=== PATIENT | female | born 1965 | race Caucasian/White ===

== ENCOUNTER → 2016-11-07 | Outpatient (CLI) | payer MEDICARE, OTHER ==
[2016-11-07 12:02] LABS: HEMOGLOBIN 14.3 gm/dl (12.3-15.3); RED BLOOD COUNT 3.81 M/UL (4.00-5.10); WHITE BLOOD COUNT 5.8 K/UL (4.5-11.0)
[2016-11-07 12:40] LABS: BUN/CREATININE RATIO 6 (0-10)
== END ==
LOC: LAB 10:43
PROVIDERS: Nurse Practitioner Family
DX: E78.5 Hyperlipidemia, unspecified (principal); E53.9 Vitamin B deficiency, unspecified; E55.9 Vitamin D deficiency, unspecified; I10 Essential (primary) hypertension
CPT/HCPCS: 36415; 80053; 80061; 82043; 82607; 82652; 85025

== ENCOUNTER → 2016-11-19 | Outpatient (CLI) | payer MEDICARE | LOC: RAD 11:31 | DX: F17.200 Nicotine dependence, unspecified, uncomplicated (principal) | CPT/HCPCS: 71020 ==

== ENCOUNTER → 2017-01-06 | Outpatient (CLI) | payer MEDICARE | LOC: MAMO 11:03 | DX: Z12.31 Encounter for screening mammogram for malignant neoplasm of breast (principal); Z80.3 Family history of malignant neoplasm of breast | CPT/HCPCS: G0202 ==

== ENCOUNTER 2021-05-06 | Inpatient (IN) | payer MEDICARE, MEDICAID ==
[~2021-05-06] VITALS: Ht 170.2 cm; Wt 56.7 kg
[~2021-05-06] MED LIST: ADVAIR 100-501 EACH INH; ADVIL200 MG PO; ATIVAN0.5 MG PO; BENADRYL 50MG C50 MG PO; BUSPAR 5MG TABLE5 MG PO; CALMOSEPTINE OI71 GM TOP; COLACE 100MG C100 MG PO; CORDARONE 200M200 MG PO; COREG6.25 MG PO; CYMBALTA60 MG PO; DOXYCYCLINE HY100 M2 PO; ECOTRIN81 MG PO; ELAVIL 25 MG TA25 MG PO; ELIQUIS2.5 MG PO; ENTRESTO 49 MG1 EACH PO; FISH OIL 1,0001 EACH PO; FOLIC ACID 1 MG1 MG PO; HYDROCODON-ACE1 EAC2 PO; K-DUR TAB 20 M20 MEQ PO; KEPPRA500 MG PO; LASIX TAB 20 MG20 MG PO; LEXAPRO5 MG PO; LIDOCAINE PAIN1 EACH TP; LOPID TAB 600600 MG PO; LOVENOX30 MG/0.3 SQ; MAGOX 400400 MG PO; MEGACE 400400 MG/10 PO; MIRALAX 119 GR119 GM PO; MYCOSTATIN POWD15 GM TOP; MYCOSTATIN100000 UTS PO; NEURONTIN300 MG PO; NICOTINE PATCH1 EAC5 TD; NORCO 10-325 T1 EACH PO; NORCO 5-325 TA1 EACH PO; OXYCODONE HCL5 MG PO; PERCOCET 5-3251 EACH PO; PROTONIX40 MG PO; SILVADENE CREAM20 GM TOP; THERAGRAN M TAB1 EA PO; TYLENOL 325MG325 MG PO; ULTRAM50 MG PO; VANCOMYCIN HCL250 MG PO; VENTOLIN HFA 66.7 GM INH; VISTARIL25 MG PO; VITAMIN B-1100 MG PO; VITAMIN D250000 UNIT PO; VITAMIN D350000 UNIT PO; ZANTAC 150 MG150 MG PO; ZOFRAN4 MG PO
[2021-05-06 00:59] LABS: HEMOGLOBIN 12.8 gm/dl (12.3-15.3); RED BLOOD COUNT 4.18 M/UL (4.00-5.10); WHITE BLOOD COUNT 8.7 K/UL (4.5-11.0)
[2021-05-06 01:23] LABS: BUN/CREATININE RATIO 20 (0-10)
[2021-05-06] MEDS ORDERED: IBUPROFEN800 MG PO (12:45)
[2021-05-06] MEDS ORDERED: TYLENOL EXTRA500 MG PO (12:46)
[2021-05-07 07:04] LABS: HEMOGLOBIN 13.3 gm/dl (12.3-15.3); RED BLOOD COUNT 4.37 M/UL (4.00-5.10)
[2021-05-07 07:08] LABS: WHITE BLOOD COUNT 11.9 K/UL (4.5-11.0)
[2021-05-08 08:07] LABS: HEMOGLOBIN 12.2 gm/dl (12.3-15.3); RED BLOOD COUNT 4.21 M/UL (4.00-5.10)
[2021-05-08 08:13] LABS: WHITE BLOOD COUNT 8.8 K/UL (4.5-11.0)
[2021-05-09 06:47] LABS: HEMOGLOBIN 13.2 gm/dl (12.3-15.3); RED BLOOD COUNT 4.32 M/UL (4.00-5.10); WHITE BLOOD COUNT 8.6 K/UL (4.5-11.0)
[2021-05-09 07:42] LABS: BUN/CREATININE RATIO 22 (0-10)
[2021-05-10 07:10] LABS: HEMOGLOBIN 12.9 gm/dl (12.3-15.3); RED BLOOD COUNT 4.25 M/UL (4.00-5.10); WHITE BLOOD COUNT 9.6 K/UL (4.5-11.0)
[2021-05-10] MEDS ORDERED: LEVOFLOXACIN500 MG PO (09:52)
[2021-05-10] MEDS ORDERED: ASPIRIN EC81 MG PO (09:52)
[2021-05-10] MEDS ORDERED: FUROSEMIDE40 MG PO (09:52)
[2021-05-10] MEDS ORDERED: LISINOPRIL5 MG PO (09:52)
== END 2021-05-10 12:10 | disposition home or self-care (01) | DRG 291 ==
LOC: ER1 → MED SURG 4 08:45 → CDU 08:45 → MED SURG 4 10:59
PROVIDERS: Emergency Medicine; Internal Medicine; Physician Assistant; ADMIT Internal Medicine
PROC: B24BZZ4 Ultrasonography of Heart with Aorta, Transesophageal (ICD-10-PCS; principal; 2021-05-06)
DX: I11.0 Hypertensive heart disease with heart failure (principal); I50.21 Acute systolic (congestive) heart failure; Z20.822 Contact with and (suspected) exposure to COVID-19; L03.116 Cellulitis of left lower limb; L03.115 Cellulitis of right lower limb; N17.9 Acute kidney failure, unspecified; I42.0 Dilated cardiomyopathy; I48.0 Paroxysmal atrial fibrillation; J44.9 Chronic obstructive pulmonary disease, unspecified; D64.9 Anemia, unspecified; I08.1 Rheumatic disorders of both mitral and tricuspid valves; G40.909 Epilepsy, unspecified, not intractable, without status epilepticus; F19.10 Other psychoactive substance abuse, uncomplicated; F17.210 Nicotine dependence, cigarettes, uncomplicated; E87.6 Hypokalemia; J20.9 Acute bronchitis, unspecified; F10.10 Alcohol abuse, uncomplicated; R53.81 Other malaise; Z79.82 Long term (current) use of aspirin; Z91.14 Patient's other noncompliance with medication regimen; Z88.0 Allergy status to penicillin; Z87.81 Personal history of (healed) traumatic fracture; Z82.49 Family history of ischemic heart disease and other diseases of the circulatory system; Z81.8 Family history of other mental and behavioral disorders; Z79.01 Long term (current) use of anticoagulants; Z90.710 Acquired absence of both cervix and uterus
CPT/HCPCS: ECHO; 36415; 51701; 71045; 80048; 80053; 80061; 80307; 81001; 82550; 82553; 83605; 83690; 83735; 83874; 83880; 84100; 84439; 84443; 84484; 85025; 85027; 85610; 85652; 85730; 86140; 87040; 87077; 87086; 87186; 93005; 93306; 94640; 94760; 96374; 96375; 97161; 97165; 99285; J0696; J1650; J1940; J2270; J2405; J3475; Q9967; U0002

== ENCOUNTER 2021-07-17 05:05 | Inpatient (IN) | payer MEDICARE, MEDICAID ==
[~2021-07-17] VITALS: Ht 170.2 cm; Wt 52.8 kg
[~2021-07-17 05:05] MED LIST changes: +ASPIRIN EC81 MG PO; +FUROSEMIDE40 MG PO; +IBUPROFEN800 MG PO; +LEVOFLOXACIN500 MG PO; +LISINOPRIL5 MG PO; +TYLENOL EXTRA500 MG PO
[2021-07-17 06:03] LABS: HEMOGLOBIN 15.1 gm/dl (12.3-15.3); RED BLOOD COUNT 5.24 M/UL (4.00-5.10); WHITE BLOOD COUNT 16.3 K/UL (4.5-11.0)
[2021-07-17 06:18] LABS: BUN/CREATININE RATIO 20 (0-10)
[2021-07-18 04:31] LABS: HEMOGLOBIN 13.3 gm/dl (12.3-15.3)
[2021-07-18 04:41] LABS: RED BLOOD COUNT 4.6 M/UL (4.00-5.10); WHITE BLOOD COUNT 23.2 K/UL (4.5-11.0)
[2021-07-18 05:12] LABS: BUN/CREATININE RATIO 16 (0-10)
[2021-07-19 02:33] LABS: HEMOGLOBIN 14.3 gm/dl (12.3-15.3); RED BLOOD COUNT 4.97 M/UL (4.00-5.10); WHITE BLOOD COUNT 24.1 K/UL (4.5-11.0)
[2021-07-19 02:59] LABS: BUN/CREATININE RATIO 20 (0-10)
--- NOTE | 2021-07-19 08:40 | NUR ---
PATIENT O2 SATS AT 88% ON ROOM AIR
[2021-07-19 15:13] LABS: ORGANISM ID Not indicated. (.); SPECIMEN SOURCE Urine (.); STREPTOCOCCUS PNEUMONIAE AG Negative (Negative)
[2021-07-20 03:50] LABS: HEMOGLOBIN 13.3 gm/dl (12.3-15.3); RED BLOOD COUNT 4.57 M/UL (4.00-5.10); WHITE BLOOD COUNT 23.8 K/UL (4.5-11.0)
[2021-07-20 04:13] LABS: BUN/CREATININE RATIO 20 (0-10)
--- NOTE | 2021-07-20 20:17 | NUR ---
PATIENT REQUESTED PAIN MEDICAITION SEVERAL TIMES SINCE MY ARRIVAL TO FLOOR FOR MY SHIFT. INFORMED PATIENT SEVERAL TIMES THAT SHE JUST GOT BOTH HER PERCOCET AND MORPHINE DOSES FROM THE DAY SHIFT NURSE AT 1730. PATIENT BECAME ANGRY AND SUGGESTED THAT SHE ONLY GOT THE MORPHINE AND A BLOOD PRESSURE PILL AND THAT SHE DID NOT GET A PAIN PILL AT THAT TIME. SHE DEMANDED AMA FORMS AND WANTED TO SIGN OUT. I CALLED DR. VASQUEZ AT THIS TIME TO INFORM HIM OF THE PATIENTS REQUEST BUT WAS CUT OFF I WAS SPEAKING AND TOLD "OK WHAT DO YOU WANT? GET TO THE POINT OF WHAT YOU WANT." I TOLD THE MD THAT 6110 IS SIGNING OUT AMA. HE SAID "OKAY, IS SHE ORIENTED?" AND I TOLD HIM "YES SHE IS" HE THEN SAID "OKAY THEN, THATS FINE, I KNOW WHO SHE IS. IF SHE DOESNT GET HER PAIN MEDS SHE SIGNS OUT." I THEN TOOK AN AMA FORM INTO THE PATIENT'S ROOM AND SHE SIGNED IT. THE PATIENT HAD A LIFE VEST ON THAT WAS PUT ON YESTERDAY AND I WAS UNSURE IF ANYTHING ELSE WAS NEEDED TO BE DONE PRIOR TO HER LEAVING SO I CALLED [employer]400 ADMINISTRATOR, GIO, AND ASKED IF THERE WAS ANY ADDITIONAL THINGS I NEEDED TO DO IN REGARDS TO THE LIFE VEST. SHE TOLD ME SHE DIDNT THINK THERE WAS. I SPOKE TO HER AT APPROX. 2020. THE PATIENT'S BLOOD PRESSURE CUFF, EKG LEADS, 2 IV'S, AND PULSE OXIMETER WAS REMOVED AFTER THE AMA FORM WAS SIGNED. THE PATIENT'S SIGNIFICANT OTHER WAS IN THE ROOM AND GATHERED HER LIFE VEST MATERIALS AND BEGAN TO TAKE THEM DOWNSTAIRS. DURING THE PERIOD OF WAITING ON HIM TO GET BACK TO THE ROOM THE PATIENT HADNT HAD HER NASAL CANNULA IN AND YELLED OUT HELP AND WHEN I WENT INTO THE ROOM THE PATIENT HAD BLUISH TINT TO LIPS. THE PATIENT THEN EXPRESSED SHE WANTED TO STAY AND NOT LEAVE AND- HER NASAL CANNULA WAS ALSO REAPPLIED AT THIS TIME. [employer] ADMINISTRATOR HAPPENED TO BE ON THE FLOOR AT THIS TIME AND I ASKED HER WHAT I DO. SINCE THE PATIENT WAS STILL IN THE COMPUTER SHE SAID I COULD RESTART AN IV AND HOOK HER BACK TO THE MONITOR. THE PATIENT WAS PUT BACK ON THE MONITOR AT THIS TIME AND A NEW IV WAS STARTED. LIFE VEST STONE CARRIAGE OPERATOR WAS REPLUGGED UP. WILL CONTINUE TO MONITOR.
[2021-07-21 04:13] LABS: HEMOGLOBIN 13.2 gm/dl (12.3-15.3); RED BLOOD COUNT 4.59 M/UL (4.00-5.10); WHITE BLOOD COUNT 20.9 K/UL (4.5-11.0)
[2021-07-21 05:02] LABS: BUN/CREATININE RATIO 27 (0-10)
[2021-07-22 04:27] LABS: BUN/CREATININE RATIO 23 (0-10)
[2021-07-22 07:17] LABS: HEMOGLOBIN 14.2 gm/dl (12.3-15.3); RED BLOOD COUNT 5.12 M/UL (4.00-5.10); WHITE BLOOD COUNT 18.3 K/UL (4.5-11.0)
[2021-07-22 21:59] LABS: BODY FLUID SOURCE PLEURAL; RBC (AUTOMATED) 11600 (0-100000); WBC (AUTOMATED) 2896 (0-500)
[2021-07-22 22:00] LABS: MONONUCLEAR CELLS 9.3 (75-100); POLYMORPHONUCLEAR % 90.7 (0-25)
[2021-07-22 22:07] LABS: LDH, BODY FLUID 720 U/L; TOTAL PROTEIN, BODY FLUID 3.4 gm/dL
[2021-07-23 06:16] LABS: HEMOGLOBIN 14.7 gm/dl (12.3-15.3); RED BLOOD COUNT 5.4 M/UL (4.00-5.10); WHITE BLOOD COUNT 15.4 K/UL (4.5-11.0)
[2021-07-23 06:33] LABS: BUN/CREATININE RATIO 21 (0-10)
[2021-07-24 04:37] LABS: HEMOGLOBIN 13.4 gm/dl (12.3-15.3); WHITE BLOOD COUNT 16.8 K/UL (4.5-11.0)
[2021-07-24 04:38] LABS: RED BLOOD COUNT 4.73 M/UL (4.00-5.10)
[2021-07-24 05:45] LABS: BUN/CREATININE RATIO 24 (0-10)
[2021-07-25 08:43] LABS: HEMOGLOBIN 13.9 gm/dl (12.3-15.3); RED BLOOD COUNT 4.81 M/UL (4.00-5.10); WHITE BLOOD COUNT 19.1 K/UL (4.5-11.0)
[2021-07-25 09:11] LABS: BUN/CREATININE RATIO 20 (0-10)
[2021-07-25 14:59] LABS: BODY FLUID SOURCE PLEURAL; MONONUCLEAR CELLS 8 (75-100); POLYMORPHONUCLEAR % 92 (0-25); RBC (AUTOMATED) 11800 (0-100000); WBC (AUTOMATED) 1610 (0-500)
[2021-07-25 15:08] LABS: LDH, BODY FLUID 846 U/L; TOTAL PROTEIN, BODY FLUID 3.8 gm/dL
[2021-07-26 05:17] LABS: HEMOGLOBIN 12.5 gm/dl (12.3-15.3); RED BLOOD COUNT 4.46 M/UL (4.00-5.10); WHITE BLOOD COUNT 17.9 K/UL (4.5-11.0)
[2021-07-26 07:10] LABS: HIV SCREEN 4TH GENERATION WRFX Non Reactive (Non Reactive)
[2021-07-27 03:43] LABS: HEMOGLOBIN 12.7 gm/dl (12.3-15.3); RED BLOOD COUNT 4.51 M/UL (4.00-5.10); WHITE BLOOD COUNT 19.5 K/UL (4.5-11.0)
[2021-07-29 10:14] LABS: HEMOGLOBIN 13.2 gm/dl (12.3-15.3); RED BLOOD COUNT 4.63 M/UL (4.00-5.10)
[2021-07-29 10:15] LABS: WHITE BLOOD COUNT 14.5 K/UL (4.5-11.0)
--- NOTE | 2021-07-29 13:29 | NUR ---
Patient arrived on floor at approximately 1300. Vitals are stable and within normal limits. Patient has no complaints or requests, and is eating lunch in bed with guest. 02 at 2L via nasal cannula is in place.
[2021-07-30 08:37] LABS: HEMOGLOBIN 12.1 gm/dl (12.3-15.3); RED BLOOD COUNT 4.34 M/UL (4.00-5.10); WHITE BLOOD COUNT 13.2 K/UL (4.5-11.0)
[2021-07-30] MEDS ORDERED: TAB-A-VITE TA400 MC1 PO (17:00)
[2021-07-30] MEDS ORDERED: NICOTINE PATCH1 EAC2 TD (17:00)
[2021-07-30] MEDS ORDERED: SULFAMETHOXAZO1 EACH PO (17:00)
[2021-07-30] MEDS ORDERED: LASIX40 MG PO (17:00)
[2021-07-30] MEDS ORDERED: LOPRESSOR 25 MG25 MG PO (17:00)
[2021-07-30] MEDS ORDERED: ELIQUIS 5 MG TAB5 MG PO (17:00)
[2021-07-30] MEDS ORDERED: POTASSIUM CHLO10 MEQ PO (17:00)
[2021-07-30] MEDS ORDERED: PROTONIX 40 MG40 M1 PO (17:00)
[2021-07-30] MEDS ORDERED: BANOPHEN25 MG PO (17:00)
[2021-07-30] MEDS ORDERED: IPRAT-ALBUT 0.5-3 ML INH (17:06)
== END 2021-07-30 19:35 | disposition home or self-care (01) | DRG 871 ==
LOC: ER1 05:05 → MED SURG 4 09:08 → PROG CARE 09:08 → CDU 09:08 → PROG CARE 17:09 → MED SURG 4 07-29 13:05
PROVIDERS: Emergency Medicine; Internal Medicine; Internal Medicine Pulmonary Disease; Physician Assistant; ADMIT Internal Medicine
PROC: HZ2ZZZZ Detoxification Services for Substance Abuse Treatment (ICD-10-PCS; principal; 2021-07-17)
PROC: 5A09457 Assistance with Respiratory Ventilation, 24-96 Consecutive Hours, Continuous Positive Airway Pressure (ICD-10-PCS; 2021-07-17)
PROC: B24BZZZ Ultrasonography of Heart with Aorta (ICD-10-PCS; 2021-07-17)
PROC: 0W9B3ZZ Drainage of Left Pleural Cavity, Percutaneous Approach (ICD-10-PCS; 2021-07-22)
PROC: 0W9B30Z Drainage of Left Pleural Cavity with Drainage Device, Percutaneous Approach (ICD-10-PCS; 2021-07-25)
DX: A41.9 Sepsis, unspecified organism (principal); J18.9 Pneumonia, unspecified organism; I50.23 Acute on chronic systolic (congestive) heart failure; J96.01 Acute respiratory failure with hypoxia; J15.8 Pneumonia due to other specified bacteria; J44.0 Chronic obstructive pulmonary disease with (acute) lower respiratory infection; E87.1 Hypo-osmolality and hyponatremia; R04.2 Hemoptysis; F10.130 Alcohol abuse with withdrawal, uncomplicated; I42.7 Cardiomyopathy due to drug and external agent; J91.8 Pleural effusion in other conditions classified elsewhere; R73.9 Hyperglycemia, unspecified; E83.42 Hypomagnesemia; E87.6 Hypokalemia; I08.1 Rheumatic disorders of both mitral and tricuspid valves; R65.20 Severe sepsis without septic shock; Z20.822 Contact with and (suspected) exposure to COVID-19; I11.0 Hypertensive heart disease with heart failure; I48.0 Paroxysmal atrial fibrillation; G40.909 Epilepsy, unspecified, not intractable, without status epilepticus; F19.10 Other psychoactive substance abuse, uncomplicated; Y95 Nosocomial condition; Z96.612 Presence of left artificial shoulder joint; F17.200 Nicotine dependence, unspecified, uncomplicated; Z91.14 Patient's other noncompliance with medication regimen; Z90.710 Acquired absence of both cervix and uterus; Z98.890 Other specified postprocedural states; Z88.0 Allergy status to penicillin; Z81.8 Family history of other mental and behavioral disorders
CPT/HCPCS: 36415; 36600; 71045; 71046; 80048; 80053; 80202; 80307; 81001; 82150; 82550; 82553; 82803; 82945; 83605; 83615; 83735; 83874; 83880; 83986; 84157; 84484; 85025; 85027; 85610; 85730; 86140; 87040; 87070; 87077; 87081; 87086; 87186; 87205; 87278; 87389; 87899; 89051; 93005; 93308; 94645; 94760; 96374; 99285; C1729; J0456; J0692; J0696; J1160; J1170; J1650; J1940; J2060; J2185; J2270; J2405; J3370; J3475; J7030; J7070; Q9967; U0002